=== PATIENT | female | born 1990 | race Hispanic/Latino ===

== ENCOUNTER 2021-09-13 16:50 | Day surgery (SDC) | payer OTHER ==
[~2021-09-13] VITALS: Ht 162.6 cm; Wt 77.5 kg
[2021-09-13] MEDS ORDERED: IBUP200C25 PO (16:58)
[2021-09-13] MEDS ORDERED: MORPHINE 2 MG/ML 1ML VIAL (J2270) IV ONE (17:15)
[2021-09-13] MEDS ORDERED: ONDANSETRON 4MG/2ML VIAL IV ONE ×2 (17:15→20:40)
[2021-09-13 17:41] LABS: BASO # 0.1 10^3/uL (0.0-0.2); BASO % 0.4 % (0.0-1.0); EOS # 0.1 10^3/uL (0.0-0.5); EOS % 0.8 % (0.0-3.0); HEMOGLOBIN 12.6 g/dl (12.0-15.5); LYMPH # 2.6 10^3/uL (1.5-5.0); LYMPH % 21.1 % (24.0-44.0); MEAN CORPUSCULAR HEMOGLOBIN 27.1 pg (27.0-33.0); MEAN CORPUSCULAR HGB CONC 34.1 g/dl (32.0-36.5); MEAN CORPUSCULAR VOLUME 79.6 fl (80.0-96.0); MONO # 1.1 10^3/uL (0.0-0.8); MONO % 8.9 % (2.0-8.0); NEUTROPHILS # 8.5 10^3/uL (1.5-8.5); NEUTROPHILS % 68.6 % (36.0-66.0); PLATELET COUNT, AUTOMATED 435 10^3/uL (150-450); RED BLOOD COUNT 4.65 10^6/uL (4.00-5.40); WHITE BLOOD COUNT 12.4 10^3/uL (4.0-10.0)
[2021-09-13 18:07] LABS: HCG, SERUM QUALITATIVE NEGATIVE (NEGATIVE)
[2021-09-13 18:08] LABS: ALBUMIN 3.8 GM/DL (3.2-5.2); ALT/SGPT 69 U/L (12-78); BILIRUBIN,DIRECT 0.2 MG/DL (0.0-0.2); BILIRUBIN,TOTAL 0.6 MG/DL (0.2-1.0); BLOOD UREA NITROGEN 9 MG/DL (7-18); CARBON DIOXIDE LEVEL 28 MEQ/L (21-32); CHLORIDE LEVEL 106 MEQ/L (98-107); GLOMERULAR FILTRATION RATE > 60.0 (>60); GLUCOSE, FASTING 94 MG/DL (70-100); LIPASE 103 U/L (73-393); POTASSIUM SERUM 3.9 MEQ/L (3.5-5.1); SODIUM LEVEL 136 MEQ/L (136-145); TOTAL PROTEIN 7.3 GM/DL (6.4-8.2)
--- NOTE | 2021-09-13 18:22 | REP ---
INDICATION: RUQ pain. COMPARISON: None. TECHNIQUE: Multiple ultrasound images of the right upper quadrant of the abdomen were obtained. FINDINGS: There are multiple 9 mm gallstones. The gallbladder wall measures 2 mm in thickness. The gallbladder is distended measuring 4.5 cm in short axis diameter. There is a positive sonographic Rush sign. The liver is normal in size and echogenicity. The common bile duct measures 4 mm in diameter. The pancreas is obscured by overlying bowel gas. The right kidney measures 11.2 x 5.1 x 4.1 cm. There is normal renal parenchymal echogenicity. There are no focal abnormalities. There is no evidence of hydronephrosis. IMPRESSION: 1. Stone filled hydropic gallbladder. 2. There is a positive sonographic Rush sign consistent with acute cholecystitis. Pertinent findings: Acute cholecystitis The critical information above was relayed directly by me by telephone to MEAGAN MANN on 09/13/2021 at 6:18 pm with readback verification. <Electronically signed by Jay Fay > 09/13/21 [id number]
[2021-09-13] MEDS ORDERED: MORPHINE 4 MG/ML 1ML VIAL/SYRINGE (J2270) IV ONE (19:00)
[2021-09-13] MEDS ORDERED: NS 1,000 ML IV ONE (19:05)
[2021-09-13] MEDS ORDERED: PIPERACILLIN/TAZOBACTAM SOD 3.375 GM in D5W MINI-BAG PLUS 50 ML IV ONE (19:10)
--- OUTSIDE RECORDS SUMMARY | 2021-09-13 20:01 | CCD ---
Author Author [facility] Address Unknown Phone Unavailable Support Name Relationship Address Phone UE Next Of Kin Unknown Unavailable JENNY CRUZ Next Of Kin [id number] [place], [place] [id number] Re-disclosure Warning The records that you are about to access may contain information from federally-assisted alcohol or drug abuse programs. If such information is present, then the following federally mandated warning applies: This information has been disclosed to you from records protected by federal confidentiality rules (42 CFR part 2). The federal rules prohibit you from making any further disclosure of this information unless further disclosure is expressly permitted by the written consent of the person to whom it pertains or as otherwise permitted by 42 CFR part 2. A general authorization for the release of medical or other information is NOT sufficient for this purpose. The Federal rules restrict any use of the information to criminally investigate or prosecute any alcohol or drug abuse patient.The records that you are about to access may contain highly sensitive health information, the redisclosure of which is protected by Article 27-F of the [facility] Public Health law. If you continue you may have access to information: Regarding HIV / AIDS; Provided by facilities licensed or operated by the [facility] Office of Mental Health; or Provided by the [facility] Office for People With Developmental Disabilities. If such information is present, then the following [facility] mandated warning applies: This information has been disclosed to you from confidential records which are protected by state law. State law prohibits you from making any further disclosure of this information without the specific written consent of the person to whom it pertains, or as otherwise permitted by law. Any unauthorized further disclosure in violation of state law may result in a fine or detention sentence or both. A general authorization for the release of medical or other information is NOT sufficient authorization for further disc losure. Medications No Information Insurance Providers Payer name Policy type / Coverage type Policy ID Covered alliance party ID Covered alliance party's relationship to walker Policy Walker Plan Information [facility] [id number] [facility] [id number] Problems, Conditions, and Diagnoses No Information Surgeries/Procedures No Information Results No Information Social History No Information
[2021-09-13 20:08] LABS: RSV AMPLIFICATION NEGATIVE (NEGATIVE)
[2021-09-13] MEDS ORDERED: BUPIVACAINE/EPIN 0.25% 30 ML VIAL As Ordered ONE (21:37)
[2021-09-13] MEDS ORDERED: SUGAMMADEX SODIUM 500 MG/5 ML VIAL (BRIDION) As Ordered ONE (21:57)
[2021-09-13] MEDS ORDERED: ROCURONIUM BROMIDE 50 MG/5 ML VIAL As Ordered ONE (21:57)
[2021-09-13] MEDS ORDERED: propofoL 200 MG/20 ML VIAL As Ordered ONE (21:57)
[2021-09-13] MEDS ORDERED: KETOROLAC 60MG 2ML VIAL As Ordered ONE (21:57)
[2021-09-13] MEDS ORDERED: fentaNYL 250 MCG/5 ML INJECTION (J3010) As Ordered ONE (21:57)
[2021-09-13] MEDS ORDERED: ONDANSETRON 4MG/2ML VIAL As Ordered ONE (21:57)
[2021-09-13] MEDS ORDERED: MIDAZOLAM INJ 2MG/2ML VIAL (J2250 PER 1MG) As Ordered ONE (21:57)
[2021-09-13] MEDS ORDERED: dexameTHASONE 4 MG/ML 1ML VIAL (J1100 PER 1MG) As Ordered ONE (21:57)
[2021-09-13] MEDS ORDERED: LIDOCAINE 2% 100MG/5ML SDV (FOR ANES.) As Ordered ONE (21:57)
[2021-09-13] MEDS ORDERED: ePHEDrine SULFATE 25 MG/5 ML(5MG/ML) SYRINGE As Ordered ONE (22:03)
[2021-09-13] MEDS ORDERED: ACETAMINOPHEN TAB 650MG DOSE (2X325MG) PO PRN (23:05)
[2021-09-13] MEDS ORDERED: ONDANSETRON 4MG/2ML VIAL IV PRN ×2 (23:05→23:20)
[2021-09-13] MEDS ORDERED: LR 1,000 ML IV SCH (23:20)
[2021-09-13] MEDS ORDERED: fentaNYL 100 MCG/2 ML INJECTION (J3010) IV PRN (23:20)
[2021-09-13] MEDS ORDERED: oxyCODONE 5MG TAB PO PRN (23:20)
[2021-09-13] MEDS ORDERED: KETOROLAC 30 MG/ML 1ML VIAL IV PRN (23:20)
[2021-09-13] MEDS ORDERED: fentaNYL 100 MCG/2 ML INJECTION (J3010) As Ordered ONE (23:21)
[2021-09-14] VITALS: BP 114/81
--- OUTSIDE RECORDS SUMMARY | 2021-09-14 00:25 | CCD ---
Author Author [facility] Address Unknown Phone Unavailable Support Name Relationship Address Phone UE Next Of Kin Unknown Unavailable JENNY CRUZ Next Of Kin [id number] [place], [place] [phone] Re-disclosure Warning The records that you are [...] is protected by Article 27-F of the [facility] Public Health law. If you continue you may have access to information: Regarding HIV / AIDS; Provided by facilities licensed or operated by the [facility] Office of Mental Health; or Provided by the [facility] Office for People With Developmental Disabilities. If such information is present, then the following [facility] mandated warning applies: This information has been [...] type / Coverage type Policy ID Covered republican ID Covered republican's relationship to walker Policy Walker Plan Information [facility] [id number] [facility] [id number] Problems, Conditions, and Diagnoses No Information Surgeries/Procedures No Information Results No Information Social History No Information
[2021-09-14] MEDS ORDERED: HOME MED LIST COMPLETE! XX SCH (00:35)
[2021-09-14] MEDS ORDERED: IBUP-1730 PO (00:35)
[2021-09-14] MEDS: KETOROLAC 30 MG/ML 1ML VIAL IV PRN ×3 (00:48→19:38)
[2021-09-14] MEDS: NS 1,000 ML IV SCH ×4 (00:48→18:52)
[2021-09-14 01:00] VITALS: BP 115/76
[2021-09-14 02:00] VITALS: BP 127/90
[2021-09-14] MEDS: PIPERACILLIN/TAZOBACTAM SOD 3.375 GM in D5W MINI-BAG PLUS 50 ML IV SCH ×4 (02:24→18:50)
[2021-09-14 07:30] LABS: HEMOGLOBIN 11.6 g/dl (12.0-15.5); RED BLOOD COUNT 4.34 10^6/uL (4.00-5.40); WHITE BLOOD COUNT 18.1 10^3/uL (4.0-10.0)
[2021-09-14 07:31] LABS: HEMATOCRIT 34.8 % (36.0-47.0); MEAN CORPUSCULAR HEMOGLOBIN 26.7 pg (27.0-33.0); MEAN CORPUSCULAR HGB CONC 33.3 g/dl (32.0-36.5); MEAN CORPUSCULAR VOLUME 80.2 fl (80.0-96.0); PLATELET COUNT, AUTOMATED 368 10^3/uL (150-450)
--- NOTE | 2021-09-14 07:44 | RO ---
OPERATIVE NOTE DATE OF OPERATION: 09/13/2021 PREOPERATIVE DIAGNOSIS: Acute cholecystitis. POSTOPERATIVE DIAGNOSIS: Acute cholecystitis. PROCEDURE: Robotic cholecystectomy. SURGEON: David Martínez DO ASSIST: None. ANESTHESIA: General. EBL: 10. COMPLICATIONS: None. INDICATIONS FOR PROCEDURE: The patient is a 31-year-old female who presents with right upper quadrant abdominal pain and was found to have acute cholecystitis on ultrasound. Recommendation was to proceed with robotic cholecystectomy. Risks and benefits of the procedure, not limited to but including bleeding, infection, hernia, damage to surrounding structures, and need for further surgery were discussed in detail with the patient. Informed consent was obtained and procedure was planned. DESCRIPTION OF PROCEDURE: The patient was brought back to operating room 7. After sufficient sedation, the abdomen was sterilely prepped and draped. Next, time out was done to confirm proper patient and proper procedure. Following that, 8 mm incision was made in left upper quadrant, Veress needle was inserted and the abdomen was insufflated to 15 mmHg. The Veress needle was removed and an 8 mm Optiview port was used to gain access to the abdomen. Once the abdomen was entered, three more ports were placed across the upper abdomen. The robot was then docked to the ports. Next, the fundus of the gallbladder was opened to relieve the pressure and the hydrops so that I was able to grab it. I was then able to grab onto it and elevate up towards the right upper quadrant. The cystic duct and cystic artery were carefully dissected free using combination of blunt and sharp dissection. Once they were both clearly identified, they were both doubly clipped and cut. The gallbladder was then dissected free from the gallbladder fossa using electrocautery, placed inside of a 5 mm Endo Catch bag and brought out through the right lateral port site. Once the gallbladder was removed, the right upper quadrant was aspirated to remove all the fluid that had leaked out of it. From the peritoneal surface I was able to use a 2-0 V-Loc and primarily close the fascia and peritoneum of the right upper quadrant site that the gallbladder had been removed from. Once that was completed the abdomen was examined one more time and confirmed hemostasis. The ports were then removed. The incisions were closed with 4-0 Vicryl subcuticular sutures. The abdomen was cleaned and dried. Steri-Strips, 4 x 4, and tape were applied. This ended the procedure.
[2021-09-14 07:58] LABS: ALBUMIN 3.4 GM/DL (3.2-5.2); ALT/SGPT 276 U/L (12-78); BILIRUBIN,TOTAL 1.1 MG/DL (0.2-1.0); BLOOD UREA NITROGEN 8 MG/DL (7-18); CALCIUM LEVEL 8.4 MG/DL (8.5-10.1); CARBON DIOXIDE LEVEL 25 MEQ/L (21-32); CHLORIDE LEVEL 104 MEQ/L (98-107); CREATININE FOR GFR 0.55 MG/DL (0.55-1.30); GLOMERULAR FILTRATION RATE > 60.0 (>60); GLUCOSE, FASTING 142 MG/DL (70-100); POTASSIUM SERUM 4.1 MEQ/L (3.5-5.1); SODIUM LEVEL 136 MEQ/L (136-145); TOTAL PROTEIN 6.6 GM/DL (6.4-8.2)
--- NOTE | 2021-09-14 08:12 | HPE ---
HISTORY AND PHYSICAL DATE OF ADMISSION: 09/13/2021 CHIEF COMPLAINT: Right upper quadrant pain. HISTORY OF PRESENT ILLNESS: The patient is a 31-year-old female who started having right upper quadrant pain with nausea starting this past Sunday. The pain has been progressively worse until today when she could not handle it any longer. She has had nausea and vomiting associated with it. No heartburn or reflux. No changes in bowel movements. She came to the emergency room this afternoon, had an elevated white count at 12.4 and ultrasound of the gallbladder was positive for likely acute cholecystitis with multiple stones and hydropic gallbladder. Since her pain could not be controlled with morphine I was asked to evaluate for urgent surgery during this hospital visit. She denies every having any problems like this in the past. No changes in diet or medications and has not had any relief in her symptoms since Sunday. PAST MEDICAL HISTORY: Negative. PAST SURGICAL HISTORY: Tonsillectomy. HOME MEDICATIONS: None. ALLERGIES: NONE. SOCIAL HISTORY: Denies drug, alcohol or tobacco abuse. FAMILY HISTORY: Noncontributory. REVIEW OF SYSTEMS: Pertinent positive and negative as stated in HPI. PHYSICAL EXAMINATION: GENERAL: A&O x3. No acute distress. VITALS: Temp 98.8, pulse 99, respirations 16, blood pressure 118/72, pulse ox 96% on room air. HEENT: Pupils equally round and reactive to light and accommodation. HEART: S1, S2, regular rate and rhythm. LUNGS: Clear to auscultation bilaterally. ABDOMEN: Soft, tender to palpation in the right upper quadrant. Localized guarding, no rigidity. EXTREMITIES: No clubbing, cyanosis, or edema. LABORATORY DATA: White count 12.4, hemoglobin 12.6, platelets 435. Potassium 3.9, creatinine 0.6. LFTs all within normal range except for AST that was slightly elevated at 39. Lipase 103. COVID test negative. IMAGING: Ultrasound of the gallbladder shows multiple 9 mm gallstones with wall at 2 mm thick. Gallbladder was slightly distended at 4.5 cm and there is positive sonographic Rush sign. ASSESSMENT: The patient is a 31-year-old female with acute calculous cholecystitis. RECOMMENDATIONS: Proceed with robotic cholecystectomy. Risks and benefits of the procedure not limited to but including bleeding, infection, hernias, damage to surrounding structures, need for further surgery were discussed in detail with the patient. Informed consent was obtained and procedure was planned. Postoperatively she will be kept overnight. I will make sure she is comfortable in the morning and plan for discharge first thing in the morning. All of her questions were answered and surgery is planned.
--- NOTE | 2021-09-14 09:00 | IPNPDOC ---
Text Note Date of Service The patient was seen on 09/14/21. NOTE General surgery. Dr. Martínez The patient is a 31-year-old female admitted 09/13/2021 with acute cholecystitis status post robotic cholecystectomy 09/13/[address] Martínez. This morning, the patient has had breakfast. Has been out of bed to the bathroom several times. Reports pain has been controlled, had Toradol at 6:15 AM. Has not used any hydrocodone. Afebrile. Heart rate 80, respiratory rate 18, blood pressure 127/90, 96% room air. Awake and alert, resting comfortably in bed. Lungs clear to auscultation S1-S2 regular rate rhythm Abdomen soft, mild tenderness around surgical sites noted, dressings are all clean/dry/intact. Nondistended. Extremities with no edema Labs this morning reviewed WBC is noted to be 18.1, this is increased from 12.4 on admission. LFTs are noted to be elevated, total bilirubin 1.1, AST 207, ALT 276. Assessment/plan Acute cholecystitis status post robotic cholecystectomy as per Dr. Martínez 09/13/2021. The patient is reviewed as per Dr. Martínez The patient is tolerating regular diet Pain has been reasonably controlled. The patient is afebrile WBC noted to be elevated with elevated LFTs from admission. Plan is to recheck labs at noon today, CBC and liver profile. IV Zosyn IVF [id number]. Continue to monitor. Hold off on discharge pending results of labs at noon today VS,Fishbone, I+O VS, Fishbone, I+O Laboratory Tests 09/13/21 17:23 09/14/21 06:38 Vital Signs Date Time Temp Pulse Resp B/P (MAP) Pulse Ox O2 Delivery O2 Flow Rate FiO2 09/14/21 02:00 97.9 80 18 127/90 (102) 96 Room Air 09/13/21 23:28 2.0 I&O- Last 24 Hours up to 6 AM 09/14/21 05:59 Intake Total 2295 ml Output Total 10 ml Balance 2285 ml Melania Rivera Sep 14, 2021 09:00
[2021-09-14 12:26] LABS: HEMATOCRIT 35.1 % (36.0-47.0); HEMOGLOBIN 11.8 g/dl (12.0-15.5); MEAN CORPUSCULAR HEMOGLOBIN 26.9 pg (27.0-33.0); MEAN CORPUSCULAR HGB CONC 33.6 g/dl (32.0-36.5); MEAN CORPUSCULAR VOLUME 80.1 fl (80.0-96.0); PLATELET COUNT, AUTOMATED 413 10^3/uL (150-450); RED BLOOD COUNT 4.38 10^6/uL (4.00-5.40); WHITE BLOOD COUNT 18.8 10^3/uL (4.0-10.0)
[2021-09-14 12:50] LABS: ALBUMIN 3.3 GM/DL (3.2-5.2); BILIRUBIN,DIRECT 0.3 MG/DL (0.0-0.2); BILIRUBIN,TOTAL 0.8 MG/DL (0.2-1.0); TOTAL PROTEIN 6.5 GM/DL (6.4-8.2)
[2021-09-14 14:00] VITALS: BP 103/58
[2021-09-14] MEDS: NORCO, ANEXSIA 5/325MG TABLET (HYDROcodone/ACETAMINOPHEN) PO PRN (14:06)
[2021-09-14 22:00] VITALS: BP 102/58
[2021-09-15] MEDS: PIPERACILLIN/TAZOBACTAM SOD 3.375 GM in D5W MINI-BAG PLUS 50 ML IV SCH ×2 (00:59→08:23)
[2021-09-15] MEDS: NORCO, ANEXSIA 5/325MG TABLET (HYDROcodone/ACETAMINOPHEN) PO PRN (00:59)
[2021-09-15] MEDS: NS 1,000 ML IV SCH (05:10)
[2021-09-15] MEDS: KETOROLAC 30 MG/ML 1ML VIAL IV PRN ×2 (05:11→12:02)
[2021-09-15 06:00] VITALS: BP 106/63
[2021-09-15 08:50] LABS: HEMATOCRIT 28.7 % (36.0-47.0); MEAN CORPUSCULAR HEMOGLOBIN 27.1 pg (27.0-33.0); MEAN CORPUSCULAR HGB CONC 33.8 g/dl (32.0-36.5); MEAN CORPUSCULAR VOLUME 80.2 fl (80.0-96.0); PLATELET COUNT, AUTOMATED 338 10^3/uL (150-450); RED BLOOD COUNT 3.58 10^6/uL (4.00-5.40); WHITE BLOOD COUNT 12.7 10^3/uL (4.0-10.0)
[2021-09-15 09:00] LABS: HEMOGLOBIN 9.7 g/dl (12.0-15.5)
[2021-09-15 09:19] LABS: ALBUMIN 2.5 GM/DL (3.2-5.2); ALT/SGPT 172 U/L (12-78); BILIRUBIN,TOTAL 0.9 MG/DL (0.2-1.0); BLOOD UREA NITROGEN 11 MG/DL (7-18); CALCIUM LEVEL 7.9 MG/DL (8.5-10.1); CARBON DIOXIDE LEVEL 27 MEQ/L (21-32); CHLORIDE LEVEL 110 MEQ/L (98-107); CREATININE FOR GFR 0.58 MG/DL (0.55-1.30); GLOMERULAR FILTRATION RATE > 60.0 (>60); GLUCOSE, FASTING 112 MG/DL (70-100); POTASSIUM SERUM 3.4 MEQ/L (3.5-5.1); SODIUM LEVEL 142 MEQ/L (136-145); TOTAL PROTEIN 5.4 GM/DL (6.4-8.2)
[2021-09-15] MEDS ORDERED: AUGM875T28 PO (12:27)
[2021-09-15] MEDS ORDERED: HYDR-3715 PO (12:27)
--- NOTE | 2021-09-15 14:19 | DS.PDOC ---
Discharge Summary General Date of Admission Sep 13, 2021 at 23:05 Date of Discharge 09/15/2021 Discharge Summary General surgery. Dr. Martínez PROCEDURES PERFORMED DURING STAY: Status post robotic cholecystectomy 09/13/[address] Martínez ADMITTING DIAGNOSES: Acute cholecystitis DISCHARGE DIAGNOSES: Acute cholecystitis status post robotic cholecystectomy as per Dr. Martínez 09/13/2021. HISTORY OF PRESENT ILLNESS:The patient is a 31-year-old female admitted 09/13/2021 with acute cholecystitis HOSPITAL COURSE: The patient is status post robotic cholecystectomy 09/13/[address] Martínez. The patient tolerated the procedure well. Postoperative day #1 the patient had been out of bed, was tolerating regular diet, pain was controlled. White blood cell count was noted to be elevated with LFTs elevated from admission. Plan was to recheck labs. Continue IV Zosyn and IV fluids. Her discharge was postponed to continue to monitor. By the morning of 09/15/2021 the patient continued to report that her pain was well controlled, she was tolerating p.o. She had been out of bed. All surgical incisions were intact, clean and dry. Labs indicated improvement with WBC downtrending to 12.7, hemoglobin was noted to be 9.7 but this was possibly delusional related to IV fluids. LFTs were also continuing to trend downward. The patient was reviewed and examined as per Dr. Martínez and felt stable for discharge. DISCHARGE MEDICATIONS: Please see below. ALLERGIES: Please see below. PHYSICAL EXAMINATION ON DISCHARGE: VITAL SIGNS: Please see below. GENERAL: No acute distress, awake and alert, comfortably resting in bed HEENT: MMM CARDIOVASCULAR EXAMINATION: S1-S2 regular rate rhythm RESPIRATORY EXAMINATION: Clear to auscultation ABDOMINAL EXAMINATION: Soft, nontender, nondistended. All surgical incisions clean/dry/intact. EXTREMITIES: No edema LABORATORY DATA: Please see below. IMAGING: Right upper quadrant ultrasound IMPRESSION: 1. Stone filled hydropic gallbladder. 2. There is a positive sonographic Rush sign consistent with acute cholecystitis. Pertinent findings: Acute cholecystitis The critical information above was relayed directly by me by telephone to MEAGAN MANN on 09/13/2021 at 6:18 pm with readback verification. <Electronically signed by Jay Pulido > 09/13/[id number] DD: JAY PULIDO M.D. 09/13/211810 DISCHARGE PLAN: Discharge home Activity as tolerated Regular diet Continue to keep incisions clean and dry, allow Steri-Strips to fall off on their own. Dry dressing if needed. Can continue to use Tylenol or ibuprofen as needed [place] 5/325 1 tablet every 6 hours as needed for pain, #10, I stop reference #[id number] Augmentin 875 mg p.o. twice daily for 7 days No heavy lifting, pulling, pushing for 2 weeks. Okay to shower but no baths or swimming. Call the office with any questions, call with wound drainage, fevers, chills or increasing pain DISCHARGE CONDITION: Stable. TIME SPENT ON DISCHARGE: Greater than 30 minutes. Vital Signs/I&Os Vital Signs Date Time Temp Pulse Resp B/P (MAP) Pulse Ox O2 Delivery O2 Flow Rate FiO2 09/15/21 06:00 99.3 86 20 106/63 (77) 94 Room Air 09/13/21 23:28 2.0 I&O- Last 24 Hours up to 6 AM 09/15/21 05:59 Intake Total 3060 ml Balance 3060 ml Laboratory Data Labs 24H Laboratory Tests 2 09/15/21 08:30: Nucleated Red Blood Cells % (auto) 0.0, Anion Gap 5L, Glomerular Filtration Rate > 60.0, Calcium Level 7.9L, Total Bilirubin 0.9, Aspartate Amino Transf (AST/SGOT) 63H, Alanine Aminotransferase (ALT/SGPT) 172H, Alkaline Phosphatase 107, Total Protein 5.4L, Albumin 2.5#L, Albumin/Globulin Ratio 0.9L CBC/BMP Laboratory Tests 09/15/21 08:30 Discharge Medications Scheduled Amoxicillin/Potassium Clav (Augmentin 875-125 Tablet) 1 Each Tablet, 1 TAB PO BID Scheduled PRN Hydrocodone/Acetaminophen (Hydrocodone-Acetamin 5-325 mg) 1 Each Tablet, 1 TAB PO Q6HP PRN for MODERATE PAIN (PS 5-7) Ibuprofen (Ibuprofen) 200 Mg Tablet, 400 MG PO Q6H PRN for MILD PAIN (PS 1-4), (Reported) Allergies Coded Allergies: No Known Allergies (Unverified , 09/13/21) Melania Rivera Sep 15, 2021 14:19
== END 2021-09-15 14:01 | disposition home or self-care (01) ==
LOC: M ED 16:50 → M SDC 16:51 → UNDOADMIN 23:05 → M MS5PR 23:05 → M SDC 09-15 14:01
PROVIDERS: ATTEND Surgery
DX: K80.12 Calculus of gallbladder with acute and chronic cholecystitis without obstruction (principal)
CPT/HCPCS: 36415; 47562; 76705; 80048; 80053; 80076; 83690; 84703; 85025; 85027; 87631; 88304; 96365; 96366; 96375; 96376; 99284; J1100; J1885; J2250; J2270; J2405; J2543; J3010; S2900

== ENCOUNTER 2023-03-27 04:31 | Emergency (ER) | payer OTHER ==
[~2023-03-27 04:31] MED LIST: AUGM875T28 PO; HYDR-3715 PO; IBUP-1730 PO; IBUP200C25 PO
[2023-03-27 06:15] LABS: BASO # 0.1 10^3/uL (0.0-0.2); BASO % 0.3 % (0.0-1.0); EOS # 0.1 10^3/uL (0.0-0.5); EOS % 0.9 % (0.0-3.0); HEMATOCRIT 39.1 % (36.0-47.0); HEMOGLOBIN 13.4 g/dl (12.0-15.5); LYMPH # 1.5 10^3/uL (1.5-5.0); LYMPH % 9.4 % (24.0-44.0); MEAN CORPUSCULAR HEMOGLOBIN 27.3 pg (27.0-33.0); MEAN CORPUSCULAR HGB CONC 34.3 g/dl (32.0-36.5); MEAN CORPUSCULAR VOLUME 79.6 fl (80.0-96.0); MONO # 1.1 10^3/uL (0.0-0.8); NEUTROPHILS # 12.8 10^3/uL (1.5-8.5); PLATELET COUNT, AUTOMATED 407 10^3/uL (150-450); RED BLOOD COUNT 4.91 10^6/uL (4.00-5.40); WHITE BLOOD COUNT 15.6 10^3/uL (4.0-10.0)
[2023-03-27] MEDS ORDERED: ONDANSETRON 4MG 2ML VIAL IV ONE (06:25)
[2023-03-27] MEDS ORDERED: MORPHINE 4 MG/ML 1ML VIAL IV ONE (06:25)
[2023-03-27] MEDS ORDERED: NS 1,000 ML IV ONE (06:25)
[2023-03-27 06:39] LABS: LIPASE 31 U/L (12-53)
[2023-03-27 06:42] LABS: HCG, SERUM QUALITATIVE NEGATIVE (NEGATIVE)
[2023-03-27 06:58] LABS: ALBUMIN 4.1 G/DL (3.2-5.2); ALKALINE PHOSPHATASE 130 U/L (46-116); ALT/SGPT 866 U/L (7.0-40); AST/SGOT 1012 U/L (<34); BILIRUBIN,DIRECT 1.5 MG/DL (<0.4); BILIRUBIN,TOTAL 2.7 MG/DL (0.3-1.2); BLOOD UREA NITROGEN 10 MG/DL (9-23); CALCIUM LEVEL 9.1 MG/DL (8.5-10.1); CARBON DIOXIDE LEVEL 25 MMOL/L (20-31); CHLORIDE LEVEL 102 MMOL/L (98-107); CREATININE FOR GFR 0.78 MG/DL (0.55-1.30); GLOMERULAR FILTRATION RATE > 60.0 (>60); GLUCOSE, FASTING 103 MG/DL (60-100); POTASSIUM SERUM 3.9 MMOL/L (3.5-5.1); SODIUM LEVEL 138 MMOL/L (136-145)
[2023-03-27] MEDS ORDERED: ISOVUE-370 76% 100ML VIAL As Ordered ONE (07:17)
[2023-03-27] MEDS ORDERED: KETOROLAC 30 MG/ML 1ML VIAL IV ONE (08:25)
[2023-03-27] MEDS ORDERED: METOCLOPRAMIDE INJ 10MG/2ML VIAL IV ONE (11:05)
[2023-03-27] MEDS ORDERED: MORPHINE 2 MG/ML 1ML VIAL IV ONE (11:05)
[2023-03-27] MEDS ORDERED: PIPERACILLIN/TAZOBACTAM SOD 3.375 GM in D5W MINI-BAG PLUS 50 ML IV ONE (11:35)
[2023-03-27 11:51] LABS: HEPATITIS B SURFACE ANTIGEN NEGATIVE (NEGATIVE)
[2023-03-27 12:11] LABS: HEPATITIS B CORE ANTIBODY IGM NEGATIVE (NEGATIVE)
[2023-03-27 12:59] VITALS: BP 112/68
== END 2023-03-27 13:02 | disposition short-term general hospital (02) ==
LOC: M ED 04:31
DX: B17.9 Acute viral hepatitis, unspecified (principal); R10.9 Unspecified abdominal pain; R11.2 Nausea with vomiting, unspecified; K59.00 Constipation, unspecified
CPT/HCPCS: 74177; 80048; 80076; 83690; 84703; 85025; 86705; 86709; 86803; 87340; 87635; 96365; 96375; 96376; 99284; J1885; J2405; J2543; J2765; Q9967